=== PATIENT | male | born 1935 | race Caucasian/White ===

== ENCOUNTER 2017-09-19 12:40 | Inpatient (IN) ==
[2017-09-19] MEDS ORDERED: SODIUM CHLORIDE 0.9% 1,000 ML IV STA (13:13)
[2017-09-19] MEDS ORDERED: ONDANSETRON 4 MG/2 ML VIAL IV STA (13:13)
[2017-09-19] MEDS ORDERED: ONDANSETRON 4 MG/2 ML VIAL ONE (13:42)
[2017-09-19 13:45] LABS: Hematocrit 36.5 VOL% (42.0-52.0); Immature Granulocytes % 1.3 %; Immature Granulocytes Absolute 0.02 #; Lymphocytes # 0.8 10*3/uL (1.4-4.0); Mean Corpuscular HGB Conc 35.6 GM/DL (32-36); Mean Corpuscular Hemoglobin 30 PG (27-34); Mean Corpuscular Volume 83.1 FL (87-102); Monocytes # 0.1 10*3/uL (0.11-0.8); Monocytes % 3.9 % (1.7-12.7); Neutrophils # 0.6 10*3/uL (1.4-7.4); Neutrophils % 41.8 % (38.7-73.9); Platelet Count 210 T/CUMM (130-400); Red Blood Count 4.39 MC/CUMM (3.8-5.5); Red Cell Distribution Width 16.8 % (9.3-17.3); White Blood Count 1.5 T/CUMM (4-12)
[2017-09-19 14:22] LABS: Albumin 3.1 G/DL (3.4-5.0); Bilirubin,Direct 0.28 MG/DL (0.0-0.20); Bilirubin,Indirect 0.8 MG/DL (0.0-1.0); Bilirubin,Total 1.1 MG/DL (0.2-1.0); Calcium 7.1 MG/DL (8.5-10.1); Osmolality,Calculated 263.7 MOS/KG (273-304); Total Protein 7.1 G/DL (6.4-8.3)
[2017-09-19 15:20] LABS: Amorphous Crystals,Urine Few /HPF (Few); Apearance,Urine Slightly Hazy (Clear); Bacteria,Urine Occasional /HPF (Few); Bilirubin,Urine Negative (Negative); Blood, Urine Small mg/dL (Negative); Glucose,Urine (UA) Negative (Negative); Ketones,Urine 5 mg/dL (Negative); Mucus,Urine Occasional /LPF (Occasional); Nitrite,Urine Negative (Negative); Protein,Urine 30 MG/DL; RBC,Urine 2 /HPF (0-4); Squamous Epithelial Cell,Urine Occasional /HPF (0-10); Urine Color Yellow (Yellow); Urine Specific Gravity 1.014 (1.001-1.035); Urine Urobilinogen < 2.0 EU/DL (0.2-1.0); WBC,Urine 17 /HPF (0-6)
[2017-09-19] MEDS ORDERED: diphenhydrAMINE CAP 25 MG CAPSULE PO PRN (16:32)
[2017-09-19] MEDS ORDERED: ACETAMINOPHEN 325 MG TABLET PO PRN (16:32)
[2017-09-19] MEDS ORDERED: MAGNESIUM HYDROXIDE SUSP 30 ML UDCUP PO PRN (16:32)
[2017-09-19] MEDS ORDERED: ALUMINUM/MAGNES/SIMETH MAX STR 30 ML UDCUP PO PRN (16:32)
[2017-09-19] MEDS ORDERED: BENZTROPINE 2 MG/2 ML AMP IV PRN (16:32)
[2017-09-19] MEDS ORDERED: chlorproMAZINE 25 MG TABLET PO PRN (16:32)
[2017-09-19] MEDS ORDERED: MYLANTA/LIDO VISC 2:1 300 ML BOTTLE SWISH/SPIT PRN (16:32)
[2017-09-19] MEDS ORDERED: chlorproMAZINE INJ 50 MG in SODIUM CHLORIDE 0.9% 100 ML IV PRN (16:32)
[2017-09-19] MEDS ORDERED: chlorproMAZINE INJ 25 MG in SODIUM CHLORIDE 0.9% 100 ML IV PRN (16:32)
[2017-09-19] MEDS ORDERED: MYLANTA/LIDO VISC 2:1 300 ML BOTTLE SWISH/SWAL PRN (16:32)
[2017-09-19] MEDS ORDERED: PROMETHAZINE INJ 25 MG in SODIUM CHLORIDE 0.9% 50 ML IV PRN (16:32)
[2017-09-19] MEDS ORDERED: traMADol 50 MG TABLET PO PRN (16:32)
[2017-09-19] MEDS ORDERED: LACTULOSE 20 GM/30 ML UDCUP PO PRN (16:32)
[2017-09-19] MEDS ORDERED: guaiFENesin 200 MG/10 ML UDCUP PO PRN (16:32)
[2017-09-19] MEDS ORDERED: LOPERAMIDE 2 MG CAPSULE PO PRN ×2 (16:32)
[2017-09-19] MEDS ORDERED: TEMAZEPAM 7.5 MG CAPSULE PO PRN (16:32)
[2017-09-19 16:57] LABS: Magnesium 1.7 MG/DL (1.8-2.4); Uric Acid 9.1 MG/DL (3.5-7.2)
[2017-09-19] MEDS: FILGRASTIM-SNDZ 300 MCG/0.5 ML SYRINGE SUBCUT SCH (17:08)
[2017-09-19] MEDS: DEXT 5% NACL 0.45% KCL 20 MEQ 20 MEQ/1,000 ML BAG IV SCH ×2 (17:09→23:37)
[2017-09-19 18:57] LABS: Burr Cells Few; Platelet Estimate Normal; Poikilocytosis Slight
[2017-09-19 20:44] LABS: Apearance,Urine Slightly Hazy (Clear); Bilirubin,Urine Negative (Negative); Blood, Urine Negative (Negative); Glucose,Urine (UA) Negative (Negative); Ketones,Urine 5 mg/dL (Negative); Mucus,Urine Occasional /LPF (Occasional); Nitrite,Urine Negative (Negative); Protein,Urine 30 MG/DL; Urine Color Yellow (Yellow); Urine Specific Gravity 1.013 (1.001-1.035); Urine Urobilinogen < 2.0 EU/DL (0.2-1.0); WBC,Urine 13 /HPF (0-6)
[2017-09-20 05:35] LABS: Basophils % 2.5 % (0.0-0.8); Hemoglobin 11.3 GM/DL (14.0-18.0); Immature Granulocytes % 8.2 %; Lymphocytes # 0.5 10*3/uL (1.4-4.0); Lymphocytes % 43.4 % (21.2-54.2); Mean Corpuscular HGB Conc 35.3 GM/DL (32-36); Mean Corpuscular Hemoglobin 29 PG (27-34); Mean Corpuscular Volume 82.9 FL (87-102); Mean Platelet Volume 12.4 FL (9.6-12.0); Monocytes % 3.3 % (1.7-12.7); Neutrophils # 0.5 10*3/uL (1.4-7.4); Neutrophils % 42.6 % (38.7-73.9); Platelet Count 197 T/CUMM (130-400); Red Blood Count 3.86 MC/CUMM (3.8-5.5); Red Cell Distribution Width 16.8 % (9.3-17.3); White Blood Count 1.2 T/CUMM (4-12)
[2017-09-20 05:59] LABS: Lymphocytes 53 % (20-55); Platelet Estimate Normal; Segmented Neutrophils 47 % (50-85); Total Cells Counted 100
[2017-09-20 06:09] LABS: Albumin 2.6 G/DL (3.4-5.0); Bilirubin,Total 1.2 MG/DL (0.2-1.0); Calcium 6.4 MG/DL (8.5-10.1); Osmolality,Calculated 265.5 MOS/KG (273-304); Potassium 3.2 MMOL/L (3.5-5.1); Total Protein 5.7 G/DL (6.4-8.3)
[2017-09-20] MEDS: DEXT 5% NACL 0.45% KCL 20 MEQ 20 MEQ/1,000 ML BAG IV SCH (06:21)
[2017-09-20] MEDS ORDERED: CARBOXYMETHYLCELLULOSE 1% OPH SOLN BOTH EYES PRN (08:06)
[2017-09-20] MEDS ORDERED: ONDANSETRON ODT 4 MG TABLET PO PRN (08:19)
[2017-09-20] MEDS: PANTOPRAZOLE 40 MG TABLET PO SCH (09:23)
[2017-09-20] MEDS: DEXT 5% NACL 0.9% KCL 40 MEQ 40 MEQ/1,000 ML BAG IV SCH (09:23)
[2017-09-20] MEDS: hydroCHLOROthiazide 25 MG TABLET PO SCH (09:23)
[2017-09-20] MEDS: FILGRASTIM-SNDZ 300 MCG/0.5 ML SYRINGE SUBCUT SCH (09:23)
[2017-09-20] MEDS: ASPIRIN EC 325 MG TABLET PO SCH (09:23)
[2017-09-20] MEDS: METOPROLOL SUCCINATE XL 50 MG TABLET PO SCH (09:24)
[2017-09-20] MEDS: APIXABAN 5 MG TABLET PO SCH (09:24)
[2017-09-20] MEDS: BICALUTAMIDE 50 MG TABLET PO SCH (09:24)
[2017-09-20] MEDS: POTASSIUM CHLORIDE 10 MEQ TABLET PO SCH (09:24)
[2017-09-20] MEDS: VANCOMYCIN INJ 1,000 MG in SODIUM CHLORIDE 0.9% 250 ML IV SCH (15:57)
[2017-09-20] MEDS ORDERED: guaiFENesin/DM ER 600-30 MG TABLET PO PRN (16:41)
[2017-09-21] MEDS: DEXT 5% NACL 0.9% KCL 40 MEQ 40 MEQ/1,000 ML BAG IV SCH ×2 (02:49→14:20)
[2017-09-21] MEDS: VANCOMYCIN INJ 1,000 MG in SODIUM CHLORIDE 0.9% 250 ML IV SCH ×2 (02:50→14:18)
[2017-09-21 05:52] LABS: Basophils % 2.8 % (0.0-0.8); Hematocrit 32.8 VOL% (42.0-52.0); Hemoglobin 11.7 GM/DL (14.0-18.0); Immature Granulocytes % 0.7 %; Immature Granulocytes Absolute 0.01 #; Lymphocytes # 0.8 10*3/uL (1.4-4.0); Lymphocytes % 52.1 % (21.2-54.2); Mean Corpuscular HGB Conc 35.7 GM/DL (32-36); Mean Corpuscular Hemoglobin 30 PG (27-34); Mean Corpuscular Volume 83.2 FL (87-102); Mean Platelet Volume 12.2 FL (9.6-12.0); Monocytes # 0.2 10*3/uL (0.11-0.8); Monocytes % 11.1 % (1.7-12.7); Neutrophils # 0.5 10*3/uL (1.4-7.4); Neutrophils % 33.3 % (38.7-73.9); Platelet Count 197 T/CUMM (130-400); Red Blood Count 3.94 MC/CUMM (3.8-5.5); Red Cell Distribution Width 16.9 % (9.3-17.3); White Blood Count 1.4 T/CUMM (4-12)
[2017-09-21 06:20] LABS: Band Neutrophils 6 % (0-10); Eosinophils 2 % (0-10); Giant Platelets Few; Hypochromasia 1+; Lymphocytes 53 % (20-55); Ovalocytes Slight; Platelet Estimate Adequate; Segmented Neutrophils 28 % (50-85); Total Cells Counted 100
[2017-09-21 06:21] LABS: Atypical Lymphocytes Few
[2017-09-21 06:24] LABS: Albumin 2.5 G/DL (3.4-5.0); Bilirubin,Total 1.1 MG/DL (0.2-1.0); Calcium 6.7 MG/DL (8.5-10.1); Osmolality,Calculated 263.4 MOS/KG (273-304); Potassium 3.5 MMOL/L (3.5-5.1); Total Protein 5.6 G/DL (6.4-8.3)
[2017-09-21] MEDS ORDERED: SODIUM CHLORIDE 0.65% NASAL SPRAY 45 ML BOTTLE BOTH NARES PRN (08:45)
[2017-09-21] MEDS: METOPROLOL SUCCINATE XL 50 MG TABLET PO SCH (09:10)
[2017-09-21] MEDS: APIXABAN 5 MG TABLET PO SCH (09:10)
[2017-09-21] MEDS: ASPIRIN EC 325 MG TABLET PO SCH (09:10)
[2017-09-21] MEDS: hydroCHLOROthiazide 25 MG TABLET PO SCH (09:11)
[2017-09-21] MEDS: BICALUTAMIDE 50 MG TABLET PO SCH (09:11)
[2017-09-21] MEDS: POTASSIUM CHLORIDE 10 MEQ TABLET PO SCH (09:11)
[2017-09-21] MEDS: FILGRASTIM-SNDZ 300 MCG/0.5 ML SYRINGE SUBCUT SCH (09:13)
[2017-09-21] MEDS ORDERED: FLUCONAZOLE 100 MG TABLET PO ONE (09:51)
[2017-09-22] MEDS: VANCOMYCIN INJ 1,000 MG in SODIUM CHLORIDE 0.9% 250 ML IV SCH ×2 (03:06→14:53)
[2017-09-22 05:33] LABS: Basophils # 0.1 10*3/uL (0.0-0.2); Basophils % 2.1 % (0.0-0.8); Hematocrit 33.4 VOL% (42.0-52.0); Hemoglobin 11.7 GM/DL (14.0-18.0); Immature Granulocytes % 5.2 %; Immature Granulocytes Absolute 0.25 #; Lymphocytes # 1.4 10*3/uL (1.4-4.0); Lymphocytes % 28.8 % (21.2-54.2); Mean Corpuscular Hemoglobin 29 PG (27-34); Mean Corpuscular Volume 83.5 FL (87-102); Mean Platelet Volume 11.8 FL (9.6-12.0); Monocytes # 0.9 10*3/uL (0.11-0.8); Monocytes % 19.5 % (1.7-12.7); NRBC # 0.03 10*3/uL; Neutrophils # 2.1 10*3/uL (1.4-7.4); Neutrophils % 44.4 % (38.7-73.9); Platelet Count 206 T/CUMM (130-400); Red Cell Distribution Width 17.6 % (9.3-17.3); White Blood Count 4.8 T/CUMM (4-12)
[2017-09-22] MEDS: DEXT 5% NACL 0.9% KCL 40 MEQ 40 MEQ/1,000 ML BAG IV SCH ×3 (05:57→20:10)
[2017-09-22 06:03] LABS: Albumin 2.4 G/DL (3.4-5.0); Bilirubin,Total 1.1 MG/DL (0.2-1.0); Calcium 6.9 MG/DL (8.5-10.1); Osmolality,Calculated 264.2 MOS/KG (273-304); Potassium 3.8 MMOL/L (3.5-5.1); Total Protein 5.4 G/DL (6.4-8.3)
[2017-09-22 06:06] LABS: Lymphocytes 29 % (20-55); Nucleated Red Blood Cells 2 (0-5); Promyelocytes 1 %; Segmented Neutrophils 51 % (50-85); Total Cells Counted 100
[2017-09-22 06:07] LABS: Hypochromasia 1+; Microcytosis 1+; Ovalocytes Slight
[2017-09-22 06:08] LABS: Platelet Estimate Normal
[2017-09-22] MEDS: ASPIRIN EC 325 MG TABLET PO SCH (09:57)
[2017-09-22] MEDS: FLUCONAZOLE 100 MG TABLET PO SCH (09:58)
[2017-09-22] MEDS: APIXABAN 5 MG TABLET PO SCH (09:59)
[2017-09-22] MEDS: hydroCHLOROthiazide 25 MG TABLET PO SCH (10:00)
[2017-09-22] MEDS: METOPROLOL SUCCINATE XL 50 MG TABLET PO SCH (10:02)
[2017-09-22] MEDS: POTASSIUM CHLORIDE 10 MEQ TABLET PO SCH (10:02)
[2017-09-22] MEDS: PANTOPRAZOLE 40 MG TABLET PO SCH (10:02)
[2017-09-22] MEDS: NEOMYCIN/POLYMYXIN/GRAMICIDIN OPH SOLN 10 ML BOTTLE BOTH EYES SCH ×4 (10:04→20:03)
[2017-09-22] MEDS: FILGRASTIM-SNDZ 300 MCG/0.5 ML SYRINGE SUBCUT SCH (10:05)
[2017-09-22] MEDS: BICALUTAMIDE 50 MG TABLET PO SCH (10:15)
[2017-09-23] MEDS: VANCOMYCIN INJ 1,000 MG in SODIUM CHLORIDE 0.9% 250 ML IV SCH ×2 (03:57→16:03)
[2017-09-23 06:38] LABS: Basophils # 0.1 10*3/uL (0.0-0.2); Basophils % 0.3 % (0.0-0.8); Hematocrit 33.2 VOL% (42.0-52.0); Hemoglobin 11.8 GM/DL (14.0-18.0); Immature Granulocytes % 11.5 %; Immature Granulocytes Absolute 1.98 #; Lymphocytes # 1.9 10*3/uL (1.4-4.0); Lymphocytes % 11.2 % (21.2-54.2); Mean Corpuscular HGB Conc 35.5 GM/DL (32-36); Mean Corpuscular Hemoglobin 30 PG (27-34); Mean Corpuscular Volume 84.1 FL (87-102); Mean Platelet Volume 11.8 FL (9.6-12.0); Monocytes # 3.1 10*3/uL (0.11-0.8); Monocytes % 18.1 % (1.7-12.7); Neutrophils # 10.1 10*3/uL (1.4-7.4); Neutrophils % 58.9 % (38.7-73.9); Platelet Count 252 T/CUMM (130-400); Red Blood Count 3.95 MC/CUMM (3.8-5.5); Red Cell Distribution Width 18.1 % (9.3-17.3); White Blood Count 17.2 T/CUMM (4-12)
[2017-09-23 07:00] LABS: Atypical Lymphocytes Few; Band Neutrophils 7 % (0-10); Burr Cells Slight; Eosinophils 3 % (0-10); Giant Platelets Few; Hypochromasia Slight; Lymphocytes 14 % (20-55); Microcytosis Slight; Nucleated Red Blood Cells 1 (0-5); Ovalocytes Slight; Platelet Estimate Adequate; Segmented Neutrophils 58 % (50-85); Total Cells Counted 100
[2017-09-23 07:22] LABS: Albumin 2.4 G/DL (3.4-5.0); Bilirubin,Total 0.8 MG/DL (0.2-1.0); Calcium 6.8 MG/DL (8.5-10.1); Osmolality,Calculated 268.1 MOS/KG (273-304); Potassium 3.8 MMOL/L (3.5-5.1); Total Protein 5.5 G/DL (6.4-8.3)
[2017-09-23 07:30] LABS: Basophils # 0.1 10*3/uL (0.0-0.2); Basophils % 0.5 % (0.0-0.8); Hematocrit 32.9 VOL% (42.0-52.0); Hemoglobin 11.7 GM/DL (14.0-18.0); Immature Granulocytes % 10.2 %; Lymphocytes # 1.9 10*3/uL (1.4-4.0); Mean Corpuscular HGB Conc 35.6 GM/DL (32-36); Mean Corpuscular Hemoglobin 30 PG (27-34); Mean Corpuscular Volume 83.5 FL (87-102); Mean Platelet Volume 11.3 FL (9.6-12.0); Monocytes % 17.2 % (1.7-12.7); NRBC # 0.09 10*3/uL; Neutrophils # 10.8 10*3/uL (1.4-7.4); Neutrophils % 61.1 % (38.7-73.9); Platelet Count 278 T/CUMM (130-400); Red Blood Count 3.94 MC/CUMM (3.8-5.5); Red Cell Distribution Width 18.3 % (9.3-17.3); White Blood Count 17.6 T/CUMM (4-12)
[2017-09-23 08:11] LABS: Band Neutrophils 8 % (0-10); Lymphocytes 11 % (20-55); Nucleated Red Blood Cells 1 (0-5); Promyelocytes 3 %; Segmented Neutrophils 62 % (50-85); Total Cells Counted 100
[2017-09-23 08:12] LABS: Hypochromasia 1+; Microcytosis 1+; Ovalocytes Slight
[2017-09-23 08:13] LABS: Platelet Estimate Normal; Polychromasia Slight
[2017-09-23] MEDS: GENTAMICIN 0.3% OPH OINT 3.5 GM TUBE BOTH EYES SCH ×4 (08:48→20:48)
[2017-09-23] MEDS: hydroCHLOROthiazide 25 MG TABLET PO SCH (09:21)
[2017-09-23] MEDS: FLUCONAZOLE 100 MG TABLET PO SCH (09:27)
[2017-09-23] MEDS: METOPROLOL SUCCINATE XL 50 MG TABLET PO SCH (09:27)
[2017-09-23] MEDS: APIXABAN 5 MG TABLET PO SCH (09:27)
[2017-09-23] MEDS: BICALUTAMIDE 50 MG TABLET PO SCH (09:27)
[2017-09-23] MEDS: POTASSIUM CHLORIDE 10 MEQ TABLET PO SCH (09:27)
[2017-09-23] MEDS: ASPIRIN EC 325 MG TABLET PO SCH (09:28)
[2017-09-23] MEDS: DEXT 5% NACL 0.9% KCL 40 MEQ 40 MEQ/1,000 ML BAG IV SCH (09:43)
[2017-09-23] MEDS: PANTOPRAZOLE 40 MG VIAL IV SCH (20:47)
[2017-09-24] MEDS: DEXT 5% NACL 0.9% KCL 40 MEQ 40 MEQ/1,000 ML BAG IV SCH ×2 (00:03→10:23)
[2017-09-24] MEDS: VANCOMYCIN INJ 1,000 MG in SODIUM CHLORIDE 0.9% 250 ML IV SCH ×2 (02:54→15:37)
[2017-09-24 06:41] LABS: Basophils % 0.2 % (0.0-0.8); Hematocrit 37.4 VOL% (42.0-52.0); Hemoglobin 12.7 GM/DL (14.0-18.0); Immature Granulocytes % 14.1 %; Immature Granulocytes Absolute 2.79 #; Lymphocytes # 1.8 10*3/uL (1.4-4.0); Lymphocytes % 9.2 % (21.2-54.2); Mean Corpuscular Hemoglobin 29 PG (27-34); Mean Corpuscular Volume 86.6 FL (87-102); Mean Platelet Volume 11.8 FL (9.6-12.0); Monocytes # 3.8 10*3/uL (0.11-0.8); Monocytes % 19.4 % (1.7-12.7); NRBC # 0.06 10*3/uL; Neutrophils # 11.3 10*3/uL (1.4-7.4); Neutrophils % 57.1 % (38.7-73.9); Platelet Count 230 T/CUMM (130-400); Red Blood Count 4.32 MC/CUMM (3.8-5.5); Red Cell Distribution Width 19.1 % (9.3-17.3); White Blood Count 19.8 T/CUMM (4-12)
[2017-09-24 06:47] LABS: Albumin 2.5 G/DL (3.4-5.0); Bilirubin,Total 0.6 MG/DL (0.2-1.0); Calcium 6.7 MG/DL (8.5-10.1); Osmolality,Calculated 266.2 MOS/KG (273-304); Total Protein 5.6 G/DL (6.4-8.3)
[2017-09-24 06:48] LABS: Band Neutrophils 4 % (0-10); Hypochromasia Slight; Lymphocytes 17 % (20-55); Microcytosis 1+; Myelocytes 2 %; Platelet Estimate Adequate; Polychromasia Slight; Segmented Neutrophils 64 % (50-85); Total Cells Counted 100
[2017-09-24] MEDS ORDERED: LIDOCAINE 100 MG/5 ML SYRINGE ONE (08:08)
[2017-09-24] MEDS ORDERED: ETOMIDATE 20 MG/10 ML VIAL IV ONE (08:08)
[2017-09-24] MEDS ORDERED: PROPOFOL 200 MG/20 ML VIAL IV ONE (08:08)
[2017-09-24] MEDS ORDERED: FUROSEMIDE 40 MG/4 ML VIAL IV ONE (10:06)
[2017-09-24] MEDS: GENTAMICIN 0.3% OPH OINT 3.5 GM TUBE BOTH EYES SCH ×3 (10:24→20:57)
[2017-09-24] MEDS: POTASSIUM CHLORIDE 10 MEQ TABLET PO SCH (12:05)
[2017-09-24] MEDS: METOPROLOL SUCCINATE XL 50 MG TABLET PO SCH (12:06)
[2017-09-24] MEDS: hydroCHLOROthiazide 25 MG TABLET PO SCH (12:06)
[2017-09-24] MEDS: BICALUTAMIDE 50 MG TABLET PO SCH (12:07)
[2017-09-24] MEDS: FLUCONAZOLE 100 MG TABLET PO SCH (12:07)
[2017-09-24] MEDS: PANTOPRAZOLE 40 MG VIAL IV SCH ×2 (12:09→20:57)
[2017-09-24] MEDS: ONDANSETRON 4 MG/2 ML VIAL IV PRN (13:14)
[2017-09-24] MEDS: ALPRAZolam 0.25 MG TABLET PO PRN (14:30)
[2017-09-24] MEDS ORDERED: ALBUTEROL/IPRATROPIUM 3 ML NEB RESP TX STA (14:43)
[2017-09-24] MEDS ORDERED: FUROSEMIDE 20 MG/2 ML VIAL IV ONE (15:33)
[2017-09-24] MEDS ORDERED: methylPREDNISolone SOD SUC 125 MG/2 ML VIAL IV ONE (15:34)
[2017-09-25] MEDS: VANCOMYCIN INJ 1,000 MG in SODIUM CHLORIDE 0.9% 250 ML IV SCH ×2 (02:57→15:21)
[2017-09-25] MEDS: ALPRAZolam 0.25 MG TABLET PO PRN (03:09)
[2017-09-25 03:28] LABS: Basophils % 0.1 % (0.0-0.8); Hematocrit 36.1 VOL% (42.0-52.0); Hemoglobin 12.8 GM/DL (14.0-18.0); Immature Granulocytes % 12.9 %; Immature Granulocytes Absolute 2.94 #; Lymphocytes # 1.4 10*3/uL (1.4-4.0); Mean Corpuscular HGB Conc 35.5 GM/DL (32-36); Mean Corpuscular Hemoglobin 29 PG (27-34); Mean Corpuscular Volume 82.4 FL (87-102); Mean Platelet Volume 11.5 FL (9.6-12.0); Monocytes # 1.8 10*3/uL (0.11-0.8); Monocytes % 7.9 % (1.7-12.7); NRBC # 0.03 10*3/uL; Neutrophils # 16.7 10*3/uL (1.4-7.4); Neutrophils % 73.1 % (38.7-73.9); Platelet Count 322 T/CUMM (130-400); Red Blood Count 4.38 MC/CUMM (3.8-5.5); Red Cell Distribution Width 18.9 % (9.3-17.3); White Blood Count 22.9 T/CUMM (4-12)
[2017-09-25 04:03] LABS: Albumin 2.6 G/DL (3.4-5.0); Bilirubin,Total 0.8 MG/DL (0.2-1.0); Calcium 6.4 MG/DL (8.5-10.1); Total Protein 6.1 G/DL (6.4-8.3)
[2017-09-25 04:04] LABS: Osmolality,Calculated 273.4 MOS/KG (273-304); Potassium 3.8 MMOL/L (3.5-5.1)
[2017-09-25 04:19] LABS: Band Neutrophils 8 % (0-10); Lymphocytes 8 % (20-55); Metamyelocytes 4 %; Myelocytes 2 %; Ovalocytes Few; Platelet Estimate Normal; Segmented Neutrophils 72 % (50-85); Total Cells Counted 100
[2017-09-25] MEDS: PANTOPRAZOLE 40 MG VIAL IV SCH ×2 (09:43→20:49)
[2017-09-25] MEDS: hydroCHLOROthiazide 25 MG TABLET PO SCH (09:45)
[2017-09-25] MEDS: METOPROLOL SUCCINATE XL 50 MG TABLET PO SCH (09:45)
[2017-09-25] MEDS: FLUCONAZOLE 100 MG TABLET PO SCH (09:46)
[2017-09-25] MEDS: ASPIRIN EC 325 MG TABLET PO SCH (09:46)
[2017-09-25] MEDS: predniSONE 20 MG TABLET PO SCH (09:46)
[2017-09-25] MEDS: BICALUTAMIDE 50 MG TABLET PO SCH (09:46)
[2017-09-25] MEDS: POTASSIUM CHLORIDE 10 MEQ TABLET PO SCH (09:46)
[2017-09-25] MEDS: GENTAMICIN 0.3% OPH OINT 3.5 GM TUBE BOTH EYES SCH ×3 (09:48→20:54)
[2017-09-25] MEDS: ONDANSETRON 4 MG/2 ML VIAL IV PRN ×2 (11:12→21:00)
[2017-09-26] MEDS: VANCOMYCIN INJ 1,000 MG in SODIUM CHLORIDE 0.9% 250 ML IV SCH (02:56)
[2017-09-26 05:22] LABS: Basophils # 0.2 10*3/uL (0.0-0.2); Basophils % 0.6 % (0.0-0.8); Hematocrit 31.6 VOL% (42.0-52.0); Hemoglobin 11.1 GM/DL (14.0-18.0); Immature Granulocytes % 8.5 %; Immature Granulocytes Absolute 2.22 #; Lymphocytes # 1.2 10*3/uL (1.4-4.0); Lymphocytes % 4.4 % (21.2-54.2); Mean Corpuscular HGB Conc 35.1 GM/DL (32-36); Mean Corpuscular Hemoglobin 29 PG (27-34); Mean Corpuscular Volume 82.3 FL (87-102); Mean Platelet Volume 11.8 FL (9.6-12.0); Monocytes # 3.4 10*3/uL (0.11-0.8); Monocytes % 12.8 % (1.7-12.7); NRBC # 0.04 10*3/uL; Neutrophils # 19.4 10*3/uL (1.4-7.4); Neutrophils % 73.7 % (38.7-73.9); Platelet Count 316 T/CUMM (130-400); Red Blood Count 3.84 MC/CUMM (3.8-5.5); Red Cell Distribution Width 18.7 % (9.3-17.3); White Blood Count 26.3 T/CUMM (4-12)
[2017-09-26 05:47] LABS: Elliptocytes 1+; Platelet Estimate Normal
[2017-09-26 05:48] LABS: Anisocytosis Slight; Microcytosis Slight
[2017-09-26 05:52] LABS: Albumin 2.3 G/DL (3.4-5.0); Bilirubin,Total 0.9 MG/DL (0.2-1.0); Calcium 6.1 MG/DL (8.5-10.1); Osmolality,Calculated 272.4 MOS/KG (273-304); Potassium 3.5 MMOL/L (3.5-5.1); Total Protein 5.7 G/DL (6.4-8.3)
[2017-09-26] MEDS: DEXTROSE 5% NACL 0.45% 1,000 ML IV SCH (09:30)
[2017-09-26] MEDS: PANTOPRAZOLE 40 MG VIAL IV SCH ×2 (09:32→20:42)
[2017-09-26] MEDS: predniSONE 20 MG TABLET PO SCH (09:36)
[2017-09-26] MEDS: BICALUTAMIDE 50 MG TABLET PO SCH (09:36)
[2017-09-26] MEDS: POTASSIUM CHLORIDE 10 MEQ TABLET PO SCH (09:37)
[2017-09-26] MEDS: hydroCHLOROthiazide 25 MG TABLET PO SCH (09:37)
[2017-09-26] MEDS: METOPROLOL SUCCINATE XL 50 MG TABLET PO SCH (09:37)
[2017-09-26] MEDS: FLUCONAZOLE 100 MG TABLET PO SCH (09:37)
[2017-09-26] MEDS: GENTAMICIN 0.3% OPH OINT 3.5 GM TUBE BOTH EYES SCH ×3 (09:37→20:42)
[2017-09-26] MEDS: ASPIRIN EC 325 MG TABLET PO SCH (09:37)
[2017-09-26] MEDS: ONDANSETRON 4 MG/2 ML VIAL IV PRN (22:49)
[2017-09-27] MEDS: ALPRAZolam 0.25 MG TABLET PO PRN ×3 (02:09→21:04)
[2017-09-27] MEDS: DEXTROSE 5% NACL 0.45% 1,000 ML IV SCH (04:20)
[2017-09-27 04:59] LABS: Basophils % 0.1 % (0.0-0.8); Hematocrit 33.5 VOL% (42.0-52.0); Hemoglobin 12.1 GM/DL (14.0-18.0); Immature Granulocytes % 10.5 %; Immature Granulocytes Absolute 3.15 #; Lymphocytes # 1.5 10*3/uL (1.4-4.0); Lymphocytes % 4.9 % (21.2-54.2); Mean Corpuscular HGB Conc 36.1 GM/DL (32-36); Mean Corpuscular Hemoglobin 30 PG (27-34); Mean Corpuscular Volume 81.9 FL (87-102); Mean Platelet Volume 11.3 FL (9.6-12.0); Monocytes % 10.1 % (1.7-12.7); NRBC # 0.26 10*3/uL; Neutrophils # 22.4 10*3/uL (1.4-7.4); Neutrophils % 74.4 % (38.7-73.9); Platelet Count 386 T/CUMM (130-400); Red Blood Count 4.09 MC/CUMM (3.8-5.5); Red Cell Distribution Width 18.9 % (9.3-17.3); White Blood Count 30.1 T/CUMM (4-12)
[2017-09-27 05:23] LABS: Band Neutrophils 2 % (0-10); Hypochromasia 1+; Lymphocytes 4 % (20-55); Microcytosis 1+; Nucleated Red Blood Cells 2 (0-5); Segmented Neutrophils 85 % (50-85); Total Cells Counted 100
[2017-09-27 05:24] LABS: Ovalocytes Few; Platelet Estimate Normal
[2017-09-27 05:31] LABS: Albumin 2.6 G/DL (3.4-5.0); Bilirubin,Total 0.9 MG/DL (0.2-1.0); Calcium 6.1 MG/DL (8.5-10.1); Magnesium 1.2 MG/DL (1.8-2.4); Osmolality,Calculated 270.8 MOS/KG (273-304); Potassium 3.4 MMOL/L (3.5-5.1); Total Protein 6.1 G/DL (6.4-8.3)
[2017-09-27] MEDS: DEXT 5% NACL 0.45% KCL 20 MEQ 20 MEQ/1,000 ML BAG IV SCH ×3 (09:30→21:00)
[2017-09-27] MEDS: predniSONE 20 MG TABLET PO SCH (09:31)
[2017-09-27] MEDS: PANTOPRAZOLE 40 MG VIAL IV SCH ×2 (09:32→20:48)
[2017-09-27] MEDS: hydroCHLOROthiazide 25 MG TABLET PO SCH (09:32)
[2017-09-27] MEDS: FLUCONAZOLE 100 MG TABLET PO SCH (09:32)
[2017-09-27] MEDS: MAGNESIUM CHLORIDE 64 MG TABLET PO SCH ×2 (09:32→20:48)
[2017-09-27] MEDS: GRANISETRON 1 MG/1 ML VIAL IV SCH (09:32)
[2017-09-27] MEDS: POTASSIUM CHLORIDE 10 MEQ TABLET PO SCH (09:32)
[2017-09-27] MEDS: METOPROLOL SUCCINATE XL 50 MG TABLET PO SCH (09:32)
[2017-09-27] MEDS: ASPIRIN EC 325 MG TABLET PO SCH (09:32)
[2017-09-27] MEDS: BICALUTAMIDE 50 MG TABLET PO SCH (09:32)
[2017-09-27] MEDS: GENTAMICIN 0.3% OPH OINT 3.5 GM TUBE BOTH EYES SCH ×3 (09:34→20:52)
[2017-09-27] MEDS: ONDANSETRON 4 MG/2 ML VIAL IV PRN (10:25)
[2017-09-27] MEDS: SUCRALFATE 1 GM/10 ML UDCUP PO SCH ×3 (12:37→20:48)
[2017-09-27] MEDS ORDERED: FUROSEMIDE 40 MG/4 ML VIAL IV ONE (22:16)
[2017-09-27] MEDS: MORPHINE 2 MG/1 ML SYRINGE IV PRN (22:42)
[2017-09-28] MEDS: MORPHINE 2 MG/1 ML SYRINGE IV PRN ×2 (00:49→18:06)
[2017-09-28] MEDS ORDERED: methylPREDNISolone SOD SUC 125 MG/2 ML VIAL ONE ×2 (05:28→05:30)
[2017-09-28] MEDS: BICALUTAMIDE 50 MG TABLET PO SCH (10:16)
[2017-09-28] MEDS: ASPIRIN EC 325 MG TABLET PO SCH (10:16)
[2017-09-28] MEDS: SUCRALFATE 1 GM/10 ML UDCUP PO SCH ×4 (10:16→22:26)
[2017-09-28] MEDS: FLUCONAZOLE 100 MG TABLET PO SCH (10:16)
[2017-09-28] MEDS: DEXT 5% NACL 0.45% KCL 20 MEQ 20 MEQ/1,000 ML BAG IV SCH ×3 (10:16→18:01)
[2017-09-28] MEDS: POTASSIUM CHLORIDE 10 MEQ TABLET PO SCH (10:17)
[2017-09-28] MEDS: predniSONE 20 MG TABLET PO SCH (10:17)
[2017-09-28] MEDS: GENTAMICIN 0.3% OPH OINT 3.5 GM TUBE BOTH EYES SCH ×3 (10:17→22:27)
[2017-09-28] MEDS: GRANISETRON 1 MG/1 ML VIAL IV SCH (10:17)
[2017-09-28] MEDS: hydroCHLOROthiazide 25 MG TABLET PO SCH (10:17)
[2017-09-28] MEDS: MAGNESIUM CHLORIDE 64 MG TABLET PO SCH ×2 (10:18→22:27)
[2017-09-28] MEDS: METOPROLOL SUCCINATE XL 50 MG TABLET PO SCH (10:18)
[2017-09-28] MEDS: PANTOPRAZOLE 40 MG VIAL IV SCH ×2 (10:18→20:41)
[2017-09-28] MEDS: ALPRAZolam 0.25 MG TABLET PO PRN (11:46)
[2017-09-28] MEDS: ALBUTEROL/IPRATROPIUM 3 ML NEB RESP TX SCH ×3 (14:30→23:00)
[2017-09-29] MEDS: ALBUTEROL/IPRATROPIUM 3 ML NEB RESP TX SCH ×6 (03:40→23:55)
[2017-09-29 05:35] LABS: Magnesium 1.3 MG/DL (1.8-2.4); Osmolality,Calculated 280.2 MOS/KG (273-304); Potassium 4.1 MMOL/L (3.5-5.1)
[2017-09-29 05:37] LABS: Calcium 5.7 MG/DL (8.5-10.1)
[2017-09-29 07:48] LABS: Albumin 2.4 G/DL (3.4-5.0); Bilirubin,Total 0.8 MG/DL (0.2-1.0); Osmolality,Calculated 280.2 MOS/KG (273-304); Potassium 4.1 MMOL/L (3.5-5.1); Total Protein 5.8 G/DL (6.4-8.3)
[2017-09-29 07:50] LABS: Hematocrit 34.1 VOL% (42.0-52.0); Hemoglobin 12.1 GM/DL (14.0-18.0); Mean Corpuscular HGB Conc 35.5 GM/DL (32-36); Mean Corpuscular Hemoglobin 30 PG (27-34); Mean Corpuscular Volume 83.2 FL (87-102)
[2017-09-29 07:51] LABS: Basophils % 0.1 % (0.0-0.8); Lymphocytes % 5.1 % (21.2-54.2); Mean Platelet Volume 11.5 FL (9.6-12.0); Monocytes % 5.6 % (1.7-12.7); Neutrophils % 78.8 % (38.7-73.9); Platelet Count 404 T/CUMM (130-400); Red Cell Distribution Width 19.4 % (9.3-17.3)
[2017-09-29 07:52] LABS: Immature Granulocytes % 10.4 %; Immature Granulocytes Absolute 4.29 #; Lymphocytes # 2.1 10*3/uL (1.4-4.0); Monocytes # 2.3 10*3/uL (0.11-0.8); NRBC # 1.23 10*3/uL; Neutrophils # 32.5 10*3/uL (1.4-7.4)
[2017-09-29 07:53] LABS: White Blood Count 41.2 T/CUMM (4-12)
[2017-09-29 08:02] LABS: Basophils # 0.2 10*3/uL (0.0-0.2); Basophils % 0.5 % (0.0-0.8); Hematocrit 32.9 VOL% (42.0-52.0); Hemoglobin 11.7 GM/DL (14.0-18.0); Immature Granulocytes % 8.6 %; Immature Granulocytes Absolute 3.15 #; Lymphocytes # 1.4 10*3/uL (1.4-4.0); Lymphocytes % 3.9 % (21.2-54.2); Mean Corpuscular HGB Conc 35.6 GM/DL (32-36); Mean Corpuscular Hemoglobin 30 PG (27-34); Mean Corpuscular Volume 83.5 FL (87-102); Mean Platelet Volume 11.8 FL (9.6-12.0); Monocytes # 1.2 10*3/uL (0.11-0.8); Monocytes % 3.3 % (1.7-12.7); NRBC # 1.65 10*3/uL; Neutrophils # 30.6 10*3/uL (1.4-7.4); Neutrophils % 83.7 % (38.7-73.9); Platelet Count 356 T/CUMM (130-400); Red Blood Count 3.94 MC/CUMM (3.8-5.5); Red Cell Distribution Width 19.7 % (9.3-17.3); White Blood Count 36.6 T/CUMM (4-12)
[2017-09-29 08:07] LABS: Calcium 5.6 MG/DL (8.5-10.1)
[2017-09-29 08:31] LABS: Potassium 4.1 MMOL/L (3.5-5.1)
[2017-09-29 08:33] LABS: Calcium 5.9 MG/DL (8.5-10.1)
[2017-09-29 08:34] LABS: Magnesium 1.4 MG/DL (1.8-2.4); Osmolality,Calculated 271.9 MOS/KG (273-304)
[2017-09-29 08:56] LABS: Band Neutrophils 2 % (0-10); Lymphocytes 3 % (20-55); Myelocytes 1 %; Nucleated Red Blood Cells 9 (0-5); Segmented Neutrophils 90 % (50-85); Total Cells Counted 100
[2017-09-29 08:57] LABS: Hypochromasia 1+; Microcytosis 1+; Ovalocytes Slight; Platelet Estimate Normal; Polychromasia Slight
[2017-09-29] MEDS: MAGNESIUM CHLORIDE 64 MG TABLET PO SCH ×2 (09:06→21:23)
[2017-09-29] MEDS: BICALUTAMIDE 50 MG TABLET PO SCH (09:07)
[2017-09-29] MEDS: POTASSIUM CHLORIDE 10 MEQ TABLET PO SCH (09:07)
[2017-09-29] MEDS: METOPROLOL SUCCINATE XL 50 MG TABLET PO SCH (09:07)
[2017-09-29] MEDS: FLUCONAZOLE 100 MG TABLET PO SCH (09:07)
[2017-09-29] MEDS: predniSONE 20 MG TABLET PO SCH (09:07)
[2017-09-29] MEDS: ASPIRIN EC 325 MG TABLET PO SCH (09:07)
[2017-09-29] MEDS: GRANISETRON 1 MG/1 ML VIAL IV SCH (09:08)
[2017-09-29] MEDS: PANTOPRAZOLE 40 MG VIAL IV SCH ×2 (09:08→21:23)
[2017-09-29] MEDS: hydroCHLOROthiazide 25 MG TABLET PO SCH (09:08)
[2017-09-29] MEDS: MORPHINE 2 MG/1 ML SYRINGE IV PRN ×4 (09:16→21:27)
[2017-09-29] MEDS: GENTAMICIN 0.3% OPH OINT 3.5 GM TUBE BOTH EYES SCH ×3 (09:19→21:23)
[2017-09-29] MEDS: DEXT 5% NACL 0.45% KCL 20 MEQ 20 MEQ/1,000 ML BAG IV SCH (11:17)
[2017-09-29] MEDS: SUCRALFATE 1 GM/10 ML UDCUP PO SCH ×4 (14:00→21:22)
[2017-09-29] MEDS ORDERED: LIDOCAINE 2% TOP JELLY 20 ML VIAL INTRAURETH ONE (17:58)
[2017-09-29 20:45] LABS: Apearance,Urine CLEAR (Clear); Bacteria,Urine Occasional /HPF (Few); Bilirubin,Urine Negative (Negative); Blood, Urine Moderate mg/dL (Negative); Glucose,Urine (UA) Negative (Negative); Ketones,Urine Negative (Negative); Nitrite,Urine Negative (Negative); Protein,Urine Negative; RBC,Urine <1 /HPF (0-4); Squamous Epithelial Cell,Urine Occasional /HPF (0-10); Urine Color Yellow (Yellow); Urine Specific Gravity 1.008 (1.001-1.035); Urine Urobilinogen < 2.0 EU/DL (0.2-1.0)
[2017-09-30] MEDS: MORPHINE 2 MG/1 ML SYRINGE IV PRN ×5 (02:18→23:22)
[2017-09-30] MEDS: ALBUTEROL/IPRATROPIUM 3 ML NEB RESP TX SCH ×6 (02:52→23:45)
[2017-09-30 04:19] LABS: Basophils # 0.2 10*3/uL (0.0-0.2); Basophils % 0.4 % (0.0-0.8); Hematocrit 32.2 VOL% (42.0-52.0); Hemoglobin 11.5 GM/DL (14.0-18.0); Immature Granulocytes % 7.1 %; Immature Granulocytes Absolute 3.11 #; Lymphocytes # 0.8 10*3/uL (1.4-4.0); Lymphocytes % 1.9 % (21.2-54.2); Mean Corpuscular HGB Conc 35.7 GM/DL (32-36); Mean Corpuscular Hemoglobin 30 PG (27-34); Mean Platelet Volume 11.3 FL (9.6-12.0); Monocytes # 1.5 10*3/uL (0.11-0.8); Monocytes % 3.3 % (1.7-12.7); NRBC # 2.18 10*3/uL; Neutrophils # 38.4 10*3/uL (1.4-7.4); Neutrophils % 87.3 % (38.7-73.9); Platelet Count 319 T/CUMM (130-400); Red Blood Count 3.88 MC/CUMM (3.8-5.5); Red Cell Distribution Width 20.1 % (9.3-17.3)
[2017-09-30 05:36] LABS: Band Neutrophils 3 % (0-10); Giant Platelets Few; Lymphocytes 3 % (20-55); Nucleated Red Blood Cells 6 (0-5); Platelet Estimate Adequate; Segmented Neutrophils 91 % (50-85); Total Cells Counted 100
[2017-09-30 05:37] LABS: Burr Cells Slight; Hypochromasia Slight; Macrocytosis Slight; Ovalocytes Slight; Polychromasia Slight
[2017-09-30 06:53] LABS: Albumin 2.5 G/DL (3.4-5.0); Bilirubin,Total 0.8 MG/DL (0.2-1.0); Osmolality,Calculated 290.1 MOS/KG (273-304); Potassium 4.6 MMOL/L (3.5-5.1); Total Protein 5.8 G/DL (6.4-8.3)
[2017-09-30 06:57] LABS: Calcium 5.6 MG/DL (8.5-10.1)
[2017-09-30] MEDS: DEXT 5% NACL 0.45% KCL 20 MEQ 20 MEQ/1,000 ML BAG IV SCH ×2 (07:15→14:57)
[2017-09-30] MEDS ORDERED: FUROSEMIDE 40 MG/4 ML VIAL IV ONE (10:44)
[2017-09-30] MEDS: PANTOPRAZOLE 40 MG VIAL IV SCH ×2 (14:45→20:30)
[2017-09-30] MEDS: methylPREDNISolone SOD SUC 40 MG/1 ML VIAL IV SCH ×2 (14:45→20:33)
[2017-09-30] MEDS: GRANISETRON 1 MG/1 ML VIAL IV SCH (14:45)
[2017-09-30] MEDS: PIPERACILLIN/TAZOBACTAM 3,375 MG in SODIUM CHLORIDE 0.9% 100 ML IV SCH ×2 (14:50→20:36)
[2017-09-30] MEDS: GENTAMICIN 0.3% OPH OINT 3.5 GM TUBE BOTH EYES SCH ×3 (14:54→22:19)
[2017-09-30] MEDS: SUCRALFATE 1 GM/10 ML UDCUP PO SCH ×4 (14:54→20:32)
[2017-09-30] MEDS: hydroCHLOROthiazide 25 MG TABLET PO SCH (14:55)
[2017-09-30] MEDS: ASPIRIN EC 325 MG TABLET PO SCH (14:55)
[2017-09-30] MEDS: FLUCONAZOLE 100 MG TABLET PO SCH (14:55)
[2017-09-30] MEDS: POTASSIUM CHLORIDE 10 MEQ TABLET PO SCH (14:55)
[2017-09-30] MEDS: BICALUTAMIDE 50 MG TABLET PO SCH (14:55)
[2017-09-30] MEDS: CALCIUM CARBONATE CHEW 500 MG TABLET PO SCH ×3 (14:56→22:19)
[2017-09-30] MEDS: MAGNESIUM CHLORIDE 64 MG TABLET PO SCH ×2 (14:56→22:19)
[2017-09-30] MEDS: METOPROLOL SUCCINATE XL 50 MG TABLET PO SCH (14:56)
[2017-09-30] MEDS: predniSONE 20 MG TABLET PO SCH (18:43)
[2017-10-01] MEDS: ALBUTEROL/IPRATROPIUM 3 ML NEB RESP TX SCH ×6 (02:50→23:21)
[2017-10-01] MEDS: PIPERACILLIN/TAZOBACTAM 3,375 MG in SODIUM CHLORIDE 0.9% 100 ML IV SCH ×3 (03:26→18:39)
[2017-10-01] MEDS: methylPREDNISolone SOD SUC 40 MG/1 ML VIAL IV SCH ×3 (03:34→18:39)
[2017-10-01] MEDS: MORPHINE 2 MG/1 ML SYRINGE IV PRN ×4 (04:24→17:09)
[2017-10-01 04:48] LABS: Basophils # 0.2 10*3/uL (0.0-0.2); Basophils % 0.4 % (0.0-0.8); Hemoglobin 11.8 GM/DL (14.0-18.0); Immature Granulocytes Absolute 2.33 #; Lymphocytes # 0.6 10*3/uL (1.4-4.0); Mean Corpuscular HGB Conc 35.8 GM/DL (32-36); Mean Corpuscular Hemoglobin 30 PG (27-34); Mean Corpuscular Volume 83.8 FL (87-102); Mean Platelet Volume 11.9 FL (9.6-12.0); Monocytes # 0.9 10*3/uL (0.11-0.8); Monocytes % 1.4 % (1.7-12.7); NRBC # 1.89 10*3/uL; Neutrophils # 54.7 10*3/uL (1.4-7.4); Neutrophils % 93.2 % (38.7-73.9); Platelet Count 290 T/CUMM (130-400); Red Blood Count 3.94 MC/CUMM (3.8-5.5); Red Cell Distribution Width 21.1 % (9.3-17.3)
[2017-10-01 04:52] LABS: White Blood Count 58.7 T/CUMM (4-12)
[2017-10-01 06:57] LABS: Albumin 2.3 G/DL (3.4-5.0); Osmolality,Calculated 296.9 MOS/KG (273-304); Potassium 5.2 MMOL/L (3.5-5.1); Total Protein 5.7 G/DL (6.4-8.3)
[2017-10-01 06:58] LABS: Calcium 5.7 MG/DL (8.5-10.1)
[2017-10-01] MEDS ORDERED: DEXTROSE 5% NACL 0.45% 1,000 ML IV SCH (08:30)
[2017-10-01] MEDS ORDERED: FUROSEMIDE 40 MG/4 ML VIAL IV ONE (08:30)
[2017-10-01] MEDS: ASPIRIN EC 325 MG TABLET PO SCH (10:02)
[2017-10-01] MEDS: BICALUTAMIDE 50 MG TABLET PO SCH (10:02)
[2017-10-01] MEDS: SUCRALFATE 1 GM/10 ML UDCUP PO SCH ×4 (10:02→20:42)
[2017-10-01] MEDS: METOPROLOL SUCCINATE XL 50 MG TABLET PO SCH (10:03)
[2017-10-01] MEDS: MAGNESIUM CHLORIDE 64 MG TABLET PO SCH ×2 (10:03→20:42)
[2017-10-01] MEDS: POTASSIUM CHLORIDE 10 MEQ TABLET PO SCH (10:03)
[2017-10-01] MEDS: FLUCONAZOLE 100 MG TABLET PO SCH (10:03)
[2017-10-01] MEDS: CALCIUM CARBONATE CHEW 500 MG TABLET PO SCH ×3 (10:04→20:42)
[2017-10-01] MEDS: DEXT 5% NACL 0.45% KCL 20 MEQ 20 MEQ/1,000 ML BAG IV SCH (10:05)
[2017-10-01] MEDS: GRANISETRON 1 MG/1 ML VIAL IV SCH (10:24)
[2017-10-01] MEDS: PANTOPRAZOLE 40 MG VIAL IV SCH ×2 (10:24→20:43)
[2017-10-01] MEDS: GENTAMICIN 0.3% OPH OINT 3.5 GM TUBE BOTH EYES SCH ×3 (10:25→20:47)
[2017-10-02] MEDS: MORPHINE 2 MG/1 ML SYRINGE IV PRN ×2 (01:11→16:10)
[2017-10-02] MEDS: ALBUTEROL/IPRATROPIUM 3 ML NEB RESP TX SCH ×2 (03:12→07:43)
[2017-10-02] MEDS: methylPREDNISolone SOD SUC 40 MG/1 ML VIAL IV SCH (04:42)
[2017-10-02] MEDS: PIPERACILLIN/TAZOBACTAM 3,375 MG in SODIUM CHLORIDE 0.9% 100 ML IV SCH ×3 (04:42→18:41)
[2017-10-02 05:18] LABS: Hematocrit 29.6 VOL% (42.0-52.0); Immature Granulocytes % 3.5 %; Immature Granulocytes Absolute 2.41 #; Lymphocytes # 0.5 10*3/uL (1.4-4.0); Lymphocytes % 0.7 % (21.2-54.2); Mean Corpuscular HGB Conc 33.8 GM/DL (32-36); Mean Corpuscular Hemoglobin 30 PG (27-34); Mean Corpuscular Volume 87.6 FL (87-102); Mean Platelet Volume 11.6 FL (9.6-12.0); Monocytes # 1.2 10*3/uL (0.11-0.8); Monocytes % 1.7 % (1.7-12.7); NRBC # 2.04 10*3/uL; Neutrophils # 64.3 10*3/uL (1.4-7.4); Neutrophils % 94.1 % (38.7-73.9); Platelet Count 247 T/CUMM (130-400); Red Blood Count 3.38 MC/CUMM (3.8-5.5); Red Cell Distribution Width 21.4 % (9.3-17.3)
[2017-10-02 05:20] LABS: White Blood Count 68.4 T/CUMM (4-12)
[2017-10-02 05:55] LABS: Albumin 1.9 G/DL (3.4-5.0); Bilirubin,Total 0.8 MG/DL (0.2-1.0); Osmolality,Calculated 314.5 MOS/KG (273-304); Potassium 5.8 MMOL/L (3.5-5.1); Total Protein 4.9 G/DL (6.4-8.3)
[2017-10-02 05:58] LABS: Calcium 5.2 MG/DL (8.5-10.1)
[2017-10-02 06:34] LABS: Band Neutrophils 1 % (0-10); Lymphocytes 2 % (20-55); Myelocytes 1 %; Nucleated Red Blood Cells 3 (0-5); Segmented Neutrophils 96 % (50-85); Total Cells Counted 100
[2017-10-02 06:35] LABS: Anisocytosis 1+
[2017-10-02 06:36] LABS: Hypochromasia 1+; Ovalocytes 1+; Platelet Estimate Normal; Polychromasia Few
[2017-10-02] MEDS: SUCRALFATE 1 GM/10 ML UDCUP PO SCH (08:12)
[2017-10-02 19:03] VITALS: BP 69/42
== END 2017-10-03 01:48 | disposition expired | DRG 689 ==
LOC: N.ED 12:40 → N.EDINP 14:45 → N.4E 16:05
PROVIDERS: ADMIT Specialist; ATTEND Specialist